=== PATIENT | female | born 1980 | race Caucasian/White ===

== ENCOUNTER 2021-07-24 15:47 | Emergency (ER) | payer MEDICAID ==
--- NOTE | 2021-07-24 18:17 | Emergency Department Report ---
ED General Adult HPI - General Chief complaint: Fever Stated complaint: FEVER, COUGH Time Seen by Provider: 07/24/21 17:45 Source: patient Mode of arrival: Ambulatory Limitations: No Limitations - History of Present Illness Initial comments: 40-year-old female patient presents with complaints of cough and congestion for the past 2 days. She states she had a fever of 107 taken via forehead. She denies any shortness of breath, chest pain, hemoptysis, nausea/vomiting/diarrhea. She states there are several others in her household also sick. She has not been vaccinated against COVID-19 and has not had COVID- 19 testing. No past medical history per patient. She states she is otherwise feeling fine, however she wanted to get COVID-19 testing here today because she has grandchildren in her household - Related Data Allergies Allergy/AdvReac Type Severity Reaction Status Date / Time No Known Allergies Allergy Unverified 07/24/21 16:24 ED Review of Systems ROS: Stated complaint: FEVER, COUGH Other details as noted in HPI Constitutional: see HPI. denies: chills, malaise Respiratory: see HPI Cardiovascular: denies: chest pain Gastrointestinal: denies: abdominal pain, nausea, vomiting, diarrhea Neurological: denies: headache ED Physical Exam - General Limitations: No Limitations General appearance: alert, in no apparent distress - Head Head exam: Present: atraumatic, normocephalic - Eye Eye exam: Present: normal appearance. Absent: scleral icterus - Neck Neck exam: Present: normal inspection - Respiratory Respiratory exam: Present: normal lung sounds bilaterally. Absent: respiratory distress - Cardiovascular Cardiovascular Exam: Present: regular rate, normal rhythm - Neurological Exam Neurological exam: Present: alert, oriented X3 - Psychiatric Psychiatric exam: Present: normal affect, normal mood - Skin Skin exam: Present: warm, dry, intact, normal color. Absent: rash ED Course Vital Signs 07/24/21 07/24/21 16:26 18:33 Temperature 99.0 F 98.8 F Pulse Rate 95 H 84 Respiratory 18 18 Rate Blood Pressure 122/84 Blood Pressure 122/74 [Left] O2 Sat by Pulse 100 98 Oximetry ED Medical Decision Making - Medical Decision Making 40-year-old female patient presents with complaints of cough and congestion for the past 2 days. She states she had a fever of 107 taken via forehead. She denies any shortness of breath, chest pain, hemoptysis, nausea/vomiting/diarrhea. She states there are several others in her household also sick. She has not been vaccinated against COVID-19 and has not had COVID- 19 testing. No past medical history per patient. She states she is otherwise feeling fine, however she wanted to get COVID-19 testing here today because she has grandchildren in her household Viral URI versus COVID-19. Recommend outpatient COVID-19 testing and self quarantine until her results are back. Also recommend high water intake and vitamin C and zinc supplements to boost immune system. She is otherwise well- appearing, her vitals are within normal limits, she is stable for discharge home. Discussed in detail signs and symptoms that should prompt immediate return to the emergency department with patient who verbalizes understanding Critical care attestation.: If time is entered above; I have spent that time in minutes in the direct care of this critically ill patient, excluding procedure time. ED Disposition Clinical Impression: Viral URI with cough Disposition: HOME / SELF CARE / HOMELESS Is pt being admited?: No Condition: Stable Instructions: Viral Respiratory Infection, Prevent the Spread of COVID-19 if You Are Sick - [facility] Referrals: PRIMARY CARE, [Primary Care Provider] - 3-5 Days
--- NOTE | 2021-07-24 18:25 | XRay Report ---
CHEST 2 VIEWS INDICATION / CLINICAL INFORMATION: cough. COMPARISON: None available. FINDINGS: SUPPORT DEVICES: None. HEART / MEDIASTINUM: No significant abnormality. LUNGS / PLEURA: No significant pulmonary or pleural abnormality. No pneumothorax. ADDITIONAL FINDINGS: No significant additional findings. IMPRESSION: 1. No acute findings. Signer Name: Contreras Rosales MD Signed: 07/24/2021 6:21 PM Workstation Name: [id number]
[2021-07-24 18:34] VITALS: BP 122/74
== END 2021-07-24 18:34 | disposition home or self-care (01) ==
LOC: ED 15:47
DX: J06.9 Acute upper respiratory infection, unspecified (principal); B97.89 Other viral agents as the cause of diseases classified elsewhere
CPT/HCPCS: 71046; 99283